=== PATIENT | male | born 1960 | race Caucasian/White ===

== ENCOUNTER 2022-10-20 15:33 | Emergency (ER) | payer BC, SELFPAY ==
--- NOTE | ~2022-10-20 | XR_ITS ---
EXAMINATION: XR chest 1V portable DATE: 10/20/2022 15:53 INDICATION: Acute generalized chest pain. Shortness of breath. TECHNIQUE: A single frontal view of the chest was obtained on 2 radiographs. COMPARISON: Chest 2 views 09/05/2012 FINDINGS: There is no pneumonia, pleural effusion, or pneumothorax. The heart size is normal. IMPRESSION: 1. No acute cardiopulmonary disease. Reviewed, dictated and finalized at location A. ING INSPECTOR
--- NOTE | 2022-10-20 15:35 | ECG_ITS ---
Measurements Intervals [place] Rate: 64 P: 63 CT: 134 QRS: 75 QRSD: 93 T: 119 QT: 414 QTc: 429 Interpretive Statements SINUS RHYTHM CANNOT RULE OUT SEPTAL INFARCT, AGE INDETERMINATE MINIMAL Q WAVES- INFERIOR LEADS ST-T WAVE ABNORMALITY IN ANTEROLAT/HIGH LAT LEADS- CONSIDER ISCHEMIA BASELINE ARTIFACT- I, II, III, AVR, AVL, AVF, V1-V6 ABNORMAL ECG NO PREVIOUS ECG AVAILABLE FOR COMPARISON Electronically Signed On 10-20-2022 15:46:38 SMALL EQUIPMENT OPERATOR by Mono Rapp D.O.
--- NOTE | 2022-10-20 15:35 | ED.CHESTPAIN ---
HPI - Chest Pain General Chief Complaint: Chest Pain Stated Complaint: chest pain Time Seen by Provider: 10/20/22 15:35 Source: patient Limitations: no limitations History of Present Illness HPI narrative: 61-year-old male ex-smoker who quit 6 years ago without any other medical history was climbing a hill in [place] when he developed -- left-sided chest pain with shortness of breath. Pain resolved when he quit walking. Pain recurs soon after he attempts walking. he drove 6 hours to come to this hospital. Current pain is 2/10. -- Shortness of breath without any lightheadedness. MD complaint: chest pain Onset (ago): hour(s) ( Started 6 hours ago) Timing of current episode: episodic Prior episodes: No Onset: during exertion Pain location: left chest Pain radiation: none Severity: severe Pain scale (0-10): 10 Quality: aching Relieving factors: nothing Exacerbating factors: exertion Treatment prior to arrival: none Risk Factors Coronary artery disease risk factors: smoking history Related Data Home Medications Medication Instructions Recorded Confirmed No Home Medications 10/20/22 10/20/22 Allergies Allergy/AdvReac Type Severity Reaction Status Date / Time No Known Allergies Allergy Verified 10/20/22 15:43 Review of Systems Review of Systems: All systems reviewed & are unremarkable except as noted in HPI and below Constitutional: Constitutional: Reports as per HPI and Reports no additional constitutional complaints Eyes: Eyes: Reports as per HPI and Reports no additional eye complaints ENT: Reports system reviewed and no additional complaints, except as documented and Reports as per HPI Cardiovascular: Cardiovascular: Reports as per HPI, Reports no additional cardiovascular complaints and Reports chest pain Respiratory: Respiratory: Reports as per HPI and Reports no additional respiratory complaints Gastrointestinal: Gastrointestinal: Reports as per HPI and Reports no additional gastrointestinal complaints Genitourinary: Genitourinary: Reports no additional male genitourinary complaints and Reports as per HPI Musculoskeletal: Musculoskeletal: Reports no additional musculoskeletal complaints and Reports as per HPI Integumentary/Breasts: Skin/Breast: Reports system reviewed and no additional complaints, except as docu and Reports as per HPI Neurologic: Reports system reviewed and no additional complaints, except as documented and Reports as per HPI Psychiatric: Psychiatric: Reports no additional psychiatric complaints and Reports as per HPI Endocrine: Endocrine: Reports no additional endocrine complaints and Reports as per HPI Hematologic/Lymphatic: Hematologic/Lymphatic: Reports no additional hematologic/lymphatic complaints and Reports as per HPI Allergic/Immunologic: Allergic/Immunologic: Reports no additional allergic/immunologic complaints and Reports as per HPI [facility] Family History Family History (Updated 10/20/22 @ 15:52 by Deyvi Thorpe MD) Other Heart disease Exam Const: Nutritional Appearance: well nourished Orientation/consciousness: patient oriented x3 Limitations: no limitations HENMT: Head: normal to inspection Ears: external ears normal Face/Nose/Sinus: Normal external nose present Face and sinus: normal facial exam Mouth: Yes Normal oral and palatal mucosa present Throat: posterior oropharynx normal Eyes: Conjunctivae: conjunctivae normal Pupils: Equal, round and reactive pupils present Direct Ophthalmoscopy: no photophobia Neck: Neck: normal visual inspection, no lymphadenopathy and no meningeal signs Chest: Chest palpation & inspection: normal inspection of the chest Resp: Effort & Inspection: normal respiratory effort Auscultation: clear to auscultation bilaterally Cardio: Rate: bradycardic Rhythm: regular rhythm GI: GI Palp: Yes Soft to palpation Auscultation: normal bowel sounds Back/Spine/Pelvis: Back: no CVA tenderness Skin: General skin
[2022-10-20] MEDS: ASPIRIN 81 MG CHEWABLE TABLET 324 MG PO (15:45)
[2022-10-20] MEDS: NITROGLYCERIN SL 0.4 MG TABLET SUBLINGUAL (15:46)
[2022-10-20 15:53] LABS: Basophils Absolute Auto 0.09 K/mm3 (0.00-0.10); Basophils Percent Auto 0.9 % (0.0-1.0); Eosinophils Absolute Auto 0.13 K/mm3 (0.02-0.50); Eosinophils Percent Auto 1.3 % (1.0-6.0); Hemoglobin 16.1 g/dL (14.0-18.0); Immature Granulocyte Absolute 0.06 K/mm3 (0.00-0.00); Immature Granulocyte Percent A 0.6 % (0.0-0.0); Lymphocytes Absolute Auto 2.24 K/mm3 (1.10-4.50); Lymphocytes Percent Auto 21.6 % (18.0-42.0); Mean Corpuscular HGB Conc 34.3 g/dL (32.0-36.0); Mean Corpuscular Hemoglobin 30.6 pg (27.0-31.0); Mean Corpuscular Volume 89.2 fL (78.0-102.0); Mean Platelet Volume 10.2 fl (8.7-11.0); Monocytes Absolute Auto 0.97 K/mm3 (0.10-0.90); Monocytes Percent Auto 9.3 % (2.0-11.0); Neutrophils Absolute Auto 6.9 K/mm3 (1.7-7.2); Neutrophils Percent Auto 66.3 % (50.0-70.0); Platelet Count Result 241 K/mm3 (150-420); Red Blood Count 5.27 M/mm3 (4.70-6.10); Red Cell Distribution Width 12.4 % (11.6-14.4); White Blood Count 10.4 K/mm3 (4.8-10.8)
[2022-10-20 15:54] VITALS: BP 148/94; PULSE 63; TEMP 35.5; O2SAT 96
[2022-10-20] MEDS: HEPARIN SODIUM 5,000 UNITS/ML VIAL 5000 UNITS (15:56)
[2022-10-20] MEDS: HEPARIN SOD/D5W 100 UNITS/ML 25,000 UNITS/250 ML BAG 10 UNITS (15:59)
[2022-10-20 16:03] LABS: Partial Thromboplastin Time 27.4 SEC (23.90-30.70); Prothrombin Time 11.1 Seconds (9.50-12.10)
[2022-10-20] MEDS: TICAGRELOR 90 MG TABLET 180 MG PO (16:08)
[2022-10-20 16:10] LABS: Anion Gap 12 mmol/L (8-16); Blood Urea Nitrogen 11 mg/dL (7-18); Carbon Dioxide 27 mmol/L (21-32); Chloride 99 mmol/L (98-108); Estimated CRCL calculation 72 ml/min; Estimated Glomerular Filt Rate > 60; Potassium 3.5 mmol/L (3.5-5.1); Sodium 138 mmol/L (136-145)
[2022-10-20 16:11] LABS: Alanine Aminotransferase 47 U/L (16-63); Albumin Level 4.1 g/dL (3.4-5.0); Alkaline Phosphatase 72 U/L (46-116); Aspartate Amino Transferase 72 U/L (15-37); Bilirubin,Total 0.8 mg/dL (0.00-1.00); Glucose 112 mg/dL (70-99); Osmolality Calculated 286 mOsm/kg (285-295); Total Protein 7.8 g/dL (6.4-8.2)
[2022-10-20 16:14] VITALS: PULSE 68
[2022-10-20] MEDS: METOPROLOL TARTRATE 25 MG TABLET (16:14)
[2022-10-20 16:15] VITALS: PULSE 64
[2022-10-20 16:16] LABS: NT Pro B Type Natriuretic Pept 4123 pg/mL (0-125); Thyroid Stimulating Hormone 2.77 uIU/mL (0.36-3.74)
--- NOTE | 2022-10-20 16:29 | PC.NURSE ---
1627 air evac here, report to jostin. pt stable and alert. rating pain 08/24.
[2022-10-20 16:33] VITALS: BP 138/64; PULSE 67; RESP 20; TEMP 36.9; O2SAT 97
--- NOTE | 2022-10-28 07:33 | PC.NURSE ---
heparin drip stop time 1633, infused 5ml. remaining sent with pt on transfer to [facility].
== END 2022-10-20 16:33 | disposition short-term general hospital (02) ==
PROVIDERS: Emergency Provider Internal Medicine Critical Care Medicine
DX: I21.3 ST elevation (STEMI) myocardial infarction of unspecified site (principal); R06.02 Shortness of breath; R00.1 Bradycardia, unspecified; Z87.891 Personal history of nicotine dependence
CPT/HCPCS: 36415; 71045; 80053; 83605; 83880; 84443; 84484; 85025; 85610; 85730; 93005; 99285; A9270; J1644